=== PATIENT | male | born 1980 | race American Indian/Alaskan Native ===

== ENCOUNTER 2017-04-09 14:05 | Outpatient (CLI) | payer OTHER ==
[2017-04-09 15:26] LABS: Blood Urea Nitrogen 15 mg/dL (9-20)
== END 2017-04-09 14:06 | disposition home or self-care (01) ==
LOC: CT 14:05
PROVIDERS: ATTEND Specialist
DX: D86.9 Sarcoidosis, unspecified (principal)
CPT/HCPCS: 36415; 82565; 84520